=== PATIENT | female | born 1995 | race Caucasian/White ===

== ENCOUNTER 2017-11-12 17:06 | Emergency (ER) | payer BC ==
[2017-11-12] MEDS: MAGNESIUM CITRATE 300 ML BTL PO (18:17)
[2017-11-12] MEDS: BISACODYL 10 MG SUPP PR (19:24)
[2017-11-12] MEDS: NA PHOSPHATE/BIPHOS 133 ML ENEMA PR (19:28)
== END 2017-11-12 20:28 | disposition home or self-care (01) ==
LOC: FTE 17:06
DX: K59.00 Constipation, unspecified (principal)
CPT/HCPCS: 99282